=== PATIENT | female | born 1995 | race Caucasian/White ===

== ENCOUNTER 2016-08-31 00:43 | Inpatient (IN) | payer MEDICAID ==
[2016-08-30 23:45] VITALS: BMI 27.4
[2016-08-31] MEDS ORDERED: Lactated Ringer's 1,000 ML IV ONE (01:17)
[2016-08-31 01:57] LABS: BASO # 0.1 K/uL (0.0-0.2); BASO % 0.5 % (0.0-2.0); EOS # 0.2 K/uL (0.0-0.7); EOS % 1.6 % (0.0-4.0); LYMPH # 2.6 K/uL (1.0-4.3); LYMPH % 18.5 % (20.0-40.0); MEAN CELL VOLUME 88.6 fL (81.0-99.0); MEAN CORPUSCULAR HEMOGLOBIN 30.4 pg (27.0-31.0); MEAN CORPUSCULAR HGB CONC 34.3 g/dL (33.0-37.0); MEAN PLATELET VOLUME 9.7 fL (7.2-11.7); MONO # 1.3 K/uL (0.0-0.8); MONO % 9.5 % (0.0-10.0); RED CELL DISTRIBUTION WIDTH 14.5 % (11.5-14.5); WHITE BLOOD COUNT 14.2 K/uL (4.8-10.8)
[2016-08-31 02:07] LABS: CHLORIDE 98 mmol/L (98-107); POTASSIUM 3.4 mmol/L (3.6-5.2); SODIUM 142 mmol/L (132-148)
[2016-08-31 02:09] LABS: GFR AFRICAN-AMERICAN > 60
[2016-08-31 02:10] LABS: ALB/GLOB RATIO 1.1 (1.0-2.1); ALKALINE PHOSPHATASE 146 U/L (38-126); ALT/SGPT 34 U/L (9-52); AST/SGOT 28 U/L (14-36); BILIRUBIN,TOTAL 0.4 mg/dL (0.2-1.3); BLOOD UREA NITROGEN 7 mg/dL (7-17); CARBON DIOXIDE 25 mmol/L (22-30); GLUCOSE,RANDOM 77 mg/dL (65-105); TOTAL PROTEIN 7.7 g/dL (6.3-8.3)
[2016-08-31 02:11] LABS: CALCIUM 9.2 mg/dl (8.6-10.4)
[2016-08-31] MEDS ORDERED: Lactated Ringer's 1,000 ML IV SCH ×2 (02:20→10:45)
[2016-08-31] MEDS ORDERED: cefOXitin IV 2 gm in Dextrose 50 ML IVPB ONE (07:44)
--- NOTE | 2016-08-31 07:53 | OBHP ---
Datetime: 08/31/2016 07:42 FHR Category Provider Fetus A: Category I Datetime: 08/31/2016 01:19 IP Adm Impression: Term, intrauterine ; No Active Labor IP Chief Complaint Other: Previous C/S x 2 IP Admit Plan: Observation/Evaluation Admit Comment, IP Provider: 21 yo , LMP unsure, LYNN 09/02/16 EGA 39w 5d by shaye 05/29/16 at 2 6w 2d transferred from [facility] for evaluatin - S/P fall on ice 08/31/15 at 2200 hours. Broke her flal on outstretched hands, fell to her knees; slight hit to left flank. Denies direct abdo anjali trauma. (+) AFM; denies LOF or VB. (+) Ctx - started since departure from [facility], appr ox 0030 hours. pain scale now 8/10. issues: limited/insufficient care. Had 2 visits at a health center in [place], [place] 05/23/16 and 05/29/16: no bloodwork done; Pap/ GC/ chla mydia - all negative. Seen at [facility] 07/12/16 - transferred to [facility] for further evalua tion with c/o abdominal pain. Ultrasound performed at [place]:- AGA at 32w 5d; LYNN confirmed. Patient was advised to find an Ob provider. Is in the process of this when presented to [facility] at [place] as a harini. P Ob: C/S x 2: 2011, 7 1/2lbs, arrest of dilatation at 4 cm. 2013, 7lb 8 oz, elective repeat . Bot h in Dom Rep; no complications. 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 Denies STIs PMH: denies PSH: C/S x 2 Allergy - penicillin = rash Meds: PNV Soc Hx: denies tobacco, illcit drug or EtOH use. Lives wiht FOB; together x 7 years. Fam Hx: Mother alive 44 y.o. - HTN. Father alive 47 - hx unknown P.E.: as above. WD in mild discomfort. Awake, alert, oriented to time, person and place Assessment: 21 yo P2, 39w 5d, no care, previous CS x 2 - S/P fall; no direct abdominal tr auma. (+) uterine contractions; no cervical change. Category 1 tracing. Clinically stable. Plan: 1) Observe 2) IVFs 3) labs Addendum: 0730 hours Patient continue to contract. In light of previous x 2 and verified full-term, will proc eed with elective repeat at this time. Plan: 1) Admit 2) Prep for repeat 3) Case endorsed to incoming Hospitalist Pelvic Type - PN: Adequate Extremities - PN: Normal Abdomen - PN: Normal Back - PN: Normal Breast - PN: Not Done Lungs - PN: Normal Heart - PN: Normal Thyroid - PN: Not Done Neurologic - PN: Normal HEENT - PN: Normal General - PN: Normal Weight - Estimated: 3632 Presentation-Admit: Vertex FHR - Baseline A Provider: 140 Contraction Comments Provider: irregular Comments, ACOG Physical Exam: Skin: warm, dry, intact HEENT: full ROM Lungs: CTA bilaterally Cardiac; RRR, normal S1, S2 Abdomen: Gravid. Soft. Moderately firm with contractions. Fundal height 40 cm. Healed Pfannenstiel scar : no mases or discharge Extremities: no calf tenderness, cyanosis or edema All other systems reviewed and are negative. Gestation - Est Wks by US: 39w 5d IP Hx Assessment: Insufficient care EGA AdmitDate IP: 39.5 Vital Signs Provider: Reviewed IP Chief Complaint: Trauma/Fall NICHD Variability Prov Fetus A: Moderate 6-25bpm NICHD Accel Fetus A IP Provider: 15X15 NICHD Decel Fetus A IP Provider: None Dilatation, Provider: 0 Effacement, Provider: 50 Station, Provider: -3 Genitourinary Exam: Normal DTRs - PN: Not Done
[2016-08-31] MEDS: Sodium Citrate/Citric Acid 15 ml Sol PO ONE (08:19)
--- NOTE | 2016-08-31 08:36 | OBPN ---
Datetime: 08/31/2016 07:42 IP Progress Impression: Reassuring heart rate IP Progress Plan: Deliver- Section Contraction Comments Provider: irregular IP Progress Note Comment: Patient admitted s/p fall at 39.5 wga hx of 2 previous csection.Patient moved from [place] but was nto able to get insuraec and hence did not recevive any care.Ultrasound report from [facility] with patient which gives sigrid 09/02/16 revi ewed.Term pregnany, no , 2 previous csection plan -admit -proceed with repeat csection -informed consent for repeat csection signed.discussed with patient, using pharmacy student, ris ks of csection-bleeding, infection, injury to adjacnet organs-bladder, bowel, ureter, risk of reopera tion, risk of prolonged hospiatlisation etc.Patient voiced udnerstanding the risks and desires to pro ceed Vital Signs Provider: Reviewed; Within Normal Limits FHR Category Provider Fetus A: Category I Datetime: 08/31/2016 01:19 FHR - Baseline A Provider: 140 Gestation - Est Wks by US: 39w 5d Weight - Estimated: 3632 Presentation-Admit: Vertex NICHD Accel Fetus A IP Provider: 15X15 NICHD Variability Prov Fetus A: Moderate 6-25bpm Dilatation, Provider: 0 Effacement, Provider: 50 Station, Provider: -3 NICHD Decel Fetus A IP Provider: None
[2016-08-31] MEDS ORDERED: Oxytocin 20 units in LR 2,000 ML IV ONE (08:40)
[2016-08-31] MEDS ORDERED: Morphine 1 mg/ml preservative-free Inj(Duramorph) ONE (09:53)
[2016-08-31] MEDS ORDERED: DiphenhydrAMINE 50 mg/ml Inj IVP PRN (10:43)
[2016-08-31] MEDS ORDERED: Dexamethasone 4 mg/1 ml IVP PRN (10:43)
[2016-08-31] MEDS ORDERED: HYDROmorphone 0.5 mg/0.5 ml ISec IVP PRN (10:43)
--- NOTE | 2016-08-31 11:33 | OBDS ---
DELIVERY PERSONNEL Delivery Doctor: Mahesh Macias MD Scrub Nurse: Jhoana Ca Animal Care Supervisor: Luda Jose RN Anesthesiologist: mckayla MATERNAL INFORMATION Delivery Anesthesia: Spinal Medications in Delivery: pitocin 20 Estimated Blood Loss (ml): 700 Maternal Complications: None Provider Comments: repeat csection done [id number] LABOR SUMMARY EDC: 09/02/2016 00:00 No. Babies in Womb: 1 Attempted: No Labor Anesthesia: None LABOR INFORMATION Oxytocin: N/A Group B Beta Strep: Not Done Antibiotics # of Doses: 1 Antibiotics Time of Last Dose: 8#) Steroids Given: None Reason Steroids Not Administered: Not Applicable MEMBRANES Membranes Rupture Method: Artificial Rupture of Membranes: 08/31/2016 10:18 Length of Rupture (hrs): 0.00 Amniotic Fluid Color: Clear Amniotic Fluid Amount: Moderate Amniotic Fluid Odor: Normal STAGES OF LABOR Stage 3 hrs: 0 Stage 3 min: 1 VAGINAL DELIVERY Episiotomy: None Laceration Extension: N/A Laceration Type: None CSECTION DELIVERY Primary Indication: Repeat Elective Secondary Indication: in labor CSection Urgency: Emergency CSection Incidence: Repeat Labor: Labor Elective: Elective CSection Incision: Lower Uterine Transverse Uterine Closure: Double-layer closure BABY A INFORMATION Infant Delivery Date/Time: 08/31/2016 10:18 Method of Delivery: Born in Route : No : N/A Forceps: N/A Vacuum Extraction: N/A Shoulder Dystocia : No SHOULDER DYSTOCIA BABY A Delivery Date/Time: 08/31/2016 10:18 PRESENTATION/POSITION BABY A Presentation: Cephalic Cephalic Presentation: Vertex Vertex Position: Right Occipital Posterior Breech Presentation: N/A PLACENTA INFORMATION BABY A Placenta Delivery Time : 08/31/2016 10:19 Placenta Method of Delivery: Manual Removal Placenta Status: Delivered SCORES BABY A Heart Rate 1 min: >100 bpm Resp Effort 1 min: Good Cry Reflex Irritability 1 min: Cough or Sneeze or Pulls Away Muscle Tone 1 min: Active Motion Color 1 min: Body [place], Extremities Blue Resuscitation Effort 1 min: Tactile Stimulation SCORE 1 MIN: 9 Heart Rate 5 min: >100 bpm Resp Effort 5 min: Good Cry Reflex Irritability 5 min: Cough or Sneeze or Pulls Away Muscle Tone 5 min: Active Motion Color 5 min: Body [place], Extremities Blue SCORE 5 MIN: 9 INFANT INFORMATION BABY A Gestational Age at Delivery: 39.5 Gestational Status: Term Infant Outcome : Liveborn Condition : Stable Infant Sex: Female IDENTIFICATION/MEDS BABY A ID Band Number: [id number] ID Band Location: Left Leg; Left Arm Sensor Applied: Yes Sensor Number: [id number] Sensor Location : Cord Clamp WEIGHT/LENGTH BABY A Birthweight (gms): 3445 Weight (lb): 7 Weight (oz): 9 Length Inches: 18.75 Infant Length cms: 47.6 CORD INFORMATION BABY A No. Cord Vessels: 3 Nuchal Cord : N/A Cord Blood Taken: Yes Infant Suction: Mouth; Nose ASSESSMENT BABY A Complications: None Physical Findings at Delivery: Within Normal Limits Infant Respirations: Grunting; Nasal Flaring Director Of It Operations/ALS Called : No Infant Care By: dr ibarra Transferred To: Levels Nursery
--- NOTE | 2016-08-31 11:53 | OP ---
PROCEDURE DATE: 08/31/2016 PREOPERATIVE DIAGNOSIS: Previous section. POSTOPERATIVE DIAGNOSIS: Previous section. PROCEDURE PERFORMED: Repeat lower transverse section. SURGEON: Edwin Macias MD. DEVIL DOG: Marv Acuña MD. Please note that this procedure required surgical services assistant to assist with entry into the abdominal cavity and assist with the dissection as well as the delivery of the infant and to assist with the closure of the tissues. The surgical appliances salesperson was present and scrubbed for the entire duration of the procedure. FINDINGS: A female in vertex presentation with Apgars of 9 at 1 minute and 9 at 5 minutes, no rmal uterus, tubes, and ovaries bilaterally, thin lower uterine segment. ESTIMATED BLOOD LOSS: 700 mL. SPECIMEN SENT: Placenta and cord blood for cord pH. PROCEDURE IN DETAIL: The patient is a 21-year-old female with a history of 2 previous secti ons at 39 weeks and 5 days who presented to the Emergency Department status post fall. The patient w as found to be having contractions. The patient was thereafter taken for a repeat lower transverse c esarean section. After discussing the risks and benefits of the procedure, the risks of bleeding, in fection, injury to adjacent organs, namely bladder, bowel, ureter, risk of anesthesia, risk of the op eration, risk of prolonged hospitalization, risk of amniotic fluid embolism, risk of were discu ssed with the patient. The patient voiced understanding of the risks and desired to proceed with a C -section. The patient was thereafter taken to the operating room after informed consent was obtained . She was placed in dorsal supine position with a leftward tilt. After spinal anesthesia was admini stered by the anesthesiologist, Dr. Miller, she was then prepped and draped in the usual sterile man ner. A Drake catheter had already been placed transurethrally before bringing the patient to the OR. Once the patient was prepped and draped, in the previous scar, incision was made and this carried down to the underlying layer of the fascia with the help of the Bovie. The fascia was then incised in the midline and the incision extended laterally with the help of electrocautery. The supe rior aspect of the fascial incision was then grasped with Janis clamps, elevated, and the underlying rectus muscles dissected off. Attention was then turned to the inferior aspect of the fascial incis ion which, in a similar fashion, was grasped with Janis clamps, elevated, and the underlying rectus muscle was dissected off. The rectus muscle was in the midline by tenting up with Allis cl amps and sharply it in the midline with the help of a scalpel. Once the rectus muscle was , the peritoneum was picked up with hemostatic clamps and entered sharply as well. The per itoneal incision was extended superiorly and inferiorly with good visualization of bladder. The blad patricia blade was then inserted and the vesicouterine peritoneum identified. A transverse incision was m jennifer over the vesicouterine peritoneum with the help of Metzenbaum scissors and this incision was exte nded laterally with the help of Metzenbaum scissors. The bladder blade was then reinserted and the l ower uterine segment identified. A transverse incision was made over the lower uterine segment with the help of a fresh scalpel and this incision was extended laterally with the help of bandage scissor s. The membranes were ruptured and the 's head was delivered atraumatically followed by the lima dy and the shoulders. The cord was clamped and cut and the 's mouth and nose were suctioned. a t the same time. The was handed over to the waiting needle grader. A segment of the cord was taken for cord blood pH. Cord blood was thereafter collected and the placenta was manually removed. The uterus was exteriorized and cleared of all clots and debris. The uterine incision was repaired with 0 Polysorb in a running fashion. A second layer of same suture was used to imbricate the first layer and also to obtain hemostasis. Adequate hemostasis was noted from the uterine incision repair site. A small hematoma was noted near the right lateral edge of the hysterotomy which was found to b e stable and not expanding. The size of the hematoma was approximately 5 x 5 mm. The cul-de-sac and the abdominal cavity was irrigated and suctioned. The uterus was thereafter returned to the patient 's abdomen and the hysterotomy was inspected for hemostasis. Adequate hemostasis was noted from it. The previously noted hematoma was also inspected and was still found to be of the same size. The h ematoma was inspected for an additional 5 minutes and it was not found to be increasing at this point . The bladder flap was inspected for hemostasis and adequate hemostasis was noted. Surgicel was kathrine pearl over the bladder flap area. The peritoneum was thereafter closed with 2-0 Polysorb in a running fashion. The muscle layer was reapproximated with 2-0 Polysorb in a running fashion as well. The fa scia was closed with 0 Polysorb in a running fashion. Skin was then closed with coby. The sponge , lap, needle, and instrument count was correct at the end of procedure as reported to me. The patie nt tolerated the procedure well. The patient was thereafter cleaned and taken to the recovery room i n stable condition. The catheter was left inside for postop bladder drainage. Edwin Macias MD cc: [id number] TT: 08/31/2016 11:52:59 tn
[2016-09-01 08:26] LABS: BASO # 0.1 K/uL (0.0-0.2); BASO % 0.4 % (0.0-2.0); EOS # 0.1 K/uL (0.0-0.7); EOS % 0.7 % (0.0-4.0); HEMATOCRIT 34.5 % (34.0-47.0); LYMPH # 1.7 K/uL (1.0-4.3); LYMPH % 12.1 % (20.0-40.0); MEAN CELL VOLUME 88.7 fL (81.0-99.0); MEAN CORPUSCULAR HEMOGLOBIN 29.5 pg (27.0-31.0); MEAN CORPUSCULAR HGB CONC 33.3 g/dL (33.0-37.0); MEAN PLATELET VOLUME 9.2 fL (7.2-11.7); MONO # 1.3 K/uL (0.0-0.8); MONO % 8.9 % (0.0-10.0); RED CELL DISTRIBUTION WIDTH 14.9 % (11.5-14.5); WHITE BLOOD COUNT 14.4 K/uL (4.8-10.8)
[2016-09-01] MEDS: Prenatal Multivit/Folic Acid/Iron Tab PO SCH (09:49)
[2016-09-01] MEDS: Simethicone 80 mg Chewtab PO SCH ×4 (09:49→22:19)
[2016-09-01] MEDS: Folic Acid/Ascorbic Acid/Ferrous Sulfate 1 Tab PO SCH (09:49)
--- NOTE | 2016-09-01 10:38 | OBPPN ---
Datetime: 09/01/2016 10:35 PP Pain Prov: Within normal limits PP Nausea Prov: Denies PP Flatus Prov: Yes PP Abdomen/Uterus Prov: Normal PP Lochia Prov: Normal PP Extremities Prov: Normal PP C/S Incision Prov: Normal PP Comments Phys Exam Prov: fudus below umblicus exty no edema,no myriam t incision clean and dry PP Impression Prov: Normal progression PP Plan Prov: Continue present management PP Progress Note Prov: pt was sen at bed side, pain under control,no n.v, tolerating diet,voiding,mi n lochia, flatus_ pod#1 s/p c/s cont pain management fredrick pp care reg deit encourage ambulation Vital Signs Provider PP: Reviewed; Within Normal Limits
[2016-09-02] MEDS: Oxycodone/Acetaminophen 5/325 mg Tab PO PRN ×2 (00:19→20:29)
[2016-09-02 00:30] VITALS: RESP 20
--- NOTE | 2016-09-02 08:26 | OBPPN ---
Datetime: 09/02/2016 08:21 PP Pain Prov: Within normal limits PP Pain Prov comment: Complains of incisional pain only. PP Nausea Prov: Denies PP Flatus Prov: Yes PP Breasts Prov: Normal PP Heart Prov: Normal PP Lungs Prov: Normal PP Abdomen/Uterus Prov: Normal PP Lochia Prov: Normal PP Vulva/Perineum Prov: Normal PP CVA Tenderness Prov: Normal PP Extremities Prov: Normal PP C/S Incision Prov: Normal PP Progress Prov: Normal PP Comments Phys Exam Prov: Abdomen soft. Good bowel sounds. Incision C/D/I. PP Impression Prov: Normal progression PP Plan Prov: Continue present management PP Progress Note Prov: Stable. Anticipate discharge tomorrow. IP PP Procedures: None Vital Signs Provider Details PP: HgB 11.5g/dl
[2016-09-02] MEDS: Prenatal Multivit/Folic Acid/Iron Tab PO SCH (09:42)
[2016-09-02] MEDS: Folic Acid/Ascorbic Acid/Ferrous Sulfate 1 Tab PO SCH (09:42)
[2016-09-02] MEDS: Simethicone 80 mg Chewtab PO SCH ×4 (09:42→21:23)
[2016-09-03 07:52] VITALS: BP 123/77; PULSE 68; TEMP 98.1; O2SAT 98
[2016-09-03] MEDS: Folic Acid/Ascorbic Acid/Ferrous Sulfate 1 Tab PO SCH (09:12)
[2016-09-03] MEDS: Prenatal Multivit/Folic Acid/Iron Tab PO SCH (09:12)
[2016-09-03] MEDS: Simethicone 80 mg Chewtab PO SCH (09:12)
[2016-09-03] MEDS ORDERED: Influenza Virus Vaccine 45 mcg/0.5 ml Syr IM ONE (10:00)
--- NOTE | 2016-09-03 10:39 | OBPPN ---
Datetime: 09/03/2016 10:08 PP Pain Prov: Within normal limits PP Nausea Prov: Denies PP Flatus Prov: Yes PP BM Prov: Yes PP Breasts Prov: Normal PP Heart Prov: Normal PP Lungs Prov: Normal PP Abdomen/Uterus Prov: Normal PP Lochia Prov: Normal PP Vulva/Perineum Prov: Normal PP CVA Tenderness Prov: Normal PP Extremities Prov: Normal PP C/S Incision Prov: Normal PP Progress Prov: Normal PP Comments Phys Exam Prov: Skin: warm, dry, intact HEENT: full ROM Lungs: CTA bilaterally Cardiac: RRR, normal S1, S2 Abdomen: Soft, non distended. (+) BS. Fundus, firm, mobile, non tender; incision with coby - cl fidelia, dry, intact. Minimal lochia rubra. Extremities: nocalf tenderness, cyanosis or edema All other systems reviewed - per HPI PP Impression Prov: Normal progression PP Plan Prov: Discharge PP Progress Note Prov: Patient received in bed, in good spirits; looking forward to going home. Nish es nausea, vomiting, dizziness, lightheadedness. (+) BM P.E.: as above. WD in NAD. Awake, alert, oriented to time, person and place. Pleasant and cooperat katie. - POD #1 H/H 11.5/34.5 Assessment: POD#3 21 y.o. P3, S/P repeat LTCS; insufficient care. Limited prenatl labs ne gative. Afebrile, vital signs stable. GI and functions returned. Hemodynamically stable. Patient c ounseled re: importance of follow up clinic for: a) post op care; and b) contraception. Patient had i ndicated an interest for permanent sterilization. Clinically stable. Plan: 1) Discharge home 2) See full discharge instructions Vital Signs Provider PP: Reviewed
--- NOTE | 2016-09-03 10:41 | OBDCSUM ---
Datetime: 09/03/2016 07:45 Discharged to, Provider: Home Disch Instr Activity: Normal activity; May Shower Disch Instr Diet: Regular Discharge Diet restrict Prov: none Discharge Diagnosis, Provider: Term Delivered Discharge Time: 09/03/2016 10:37 Contraception discussed, Prov: Yes Disch Activity Restrictions: No exercising; No lifting; No sexual activity; Nothing in vagina - Inte rcourse, tampons, douche Discharge Comment, Provider: Interesetd in permanent sterilization Discharge Diagnosis Prov Other: Previous section Status post repeat section Insufficient care Contraception counseling Contraception after Delivery: Undecided
== END 2016-09-03 14:45 | disposition home or self-care (01) | DRG 370 ==
LOC: C.EROB 00:43 → C.4D 07:13 → C.4M 12:55
PROVIDERS: ADMIT Student in an Organized Health Care Education/Training Program; ATTEND Student in an Organized Health Care Education/Training Program
PROC: 10D00Z1 Extraction of Products of Conception, Low, Open Approach (ICD-10-PCS; principal; 2016-08-31)
DX: O34.211 Maternal care for low transverse scar from previous cesarean delivery (principal); O09.33 Supervision of pregnancy with insufficient antenatal care, third trimester; Z37.0 Single live birth; Z3A.39 39 weeks gestation of pregnancy